=== PATIENT | female | born 1990 | race Caucasian/White ===

== ENCOUNTER 2024-09-20 09:45 | Emergency (ER) | payer MEDICAID ==
[~2024-09-20] VITALS: Ht 172.7 cm; Wt 70.0 kg
[2024-09-20 09:49] VITALS: O2SAT 99
[2024-09-20 11:27] LABS: CLARITY URINE TURBID (CLEAR); COLOR URINE YELLOW (YELLOW); GLUCOSE URINE NEGATIVE (NEGATIVE); KETONES URINE NEGATIVE (NEGATIVE); LEUKOCYTE ESTERASE URINE NEGATIVE (NEGATIVE); NITRITE URINE NEGATIVE (NEGATIVE); OCCULT BLOOD URINE NEGATIVE (NEGATIVE); PROTEIN URINE NEGATIVE (NEGATIVE); SPECIFIC GRAVITY URINE 1.013 (1.005-1.030)
[2024-09-20 11:39] LABS: AMORPHOUS SEDIMENT URINE 4+ /lpf; BACTERIA URINE 2+; RBC URINE 0-2 /hpf (0-2); SQUAMOUS EPITHELIAL CELL URINE FEW /lpf (RARE/1+); WBC URINE 0-2 /hpf (0-2); YEAST URINE NONE SEEN
[2024-09-20] MEDS: FAMOTIDINE 20MG/2ML VIAL IV STA (12:32)
[2024-09-20] MEDS: MORPHINE SULFATE 4 MG/ML INJ (FOR IV/IM USE) IV STA (12:33)
[2024-09-20] MEDS: ONDANSETRON HCL 4MG/2ML INJ IV STA ×2 (12:33→15:55)
[2024-09-20] MEDS: SODIUM CHLORIDE 0.9% 1,000 ML IV ONE (12:33)
[2024-09-20 12:57] LABS: BASOPHILS % 0.4 % (0.0-2.0); EOSINOPHILS % 0.2 % (0.0-5.0); HEMATOCRIT. 42.5 % (36.0-48.0); HEMOGLOBIN. 14.4 g/dL (12.0-16.0); LYMPHOCYTES % 32.9 % (20.0-50.0); MEAN CORPUSCULAR HEMOGLOBIN 29.1 pg (28.0-32.0); MEAN CORPUSCULAR VOLUME 85.8 fL (81.0-99.0); MEAN PLATELET VOLUME 8.9 fl (7.4-10.4); MONOCYTES % 8.5 % (2.0-8.0); PLATELET 314 x1000/uL (130-400); RED BLOOD CELL COUNT 4.95 mill/uL (4.2-5.4); RED CELL DISTRIBUTION WIDTH 13.9 % (11.6-14.6); WHITE BLOOD COUNT 7.7 x1000/uL (4.5-11.0)
[2024-09-20 13:02] LABS: CARBON DIOXIDE 31 mEq/L (21-32); CHLORIDE 103 mEq/L (98-107); POTASSIUM 3.4 mEq/L (3.5-5.1); SODIUM 138 mEq/L (136-145)
[2024-09-20 13:03] LABS: CALCIUM 9.1 mg/dL (8.7-10.4)
[2024-09-20 13:07] LABS: CREATININE 0.8 mg/dL (0.6-1.0)
[2024-09-20 13:08] LABS: GLUCOSE 101 mg/dL (70-105); UREA NITROGEN BLOOD 9 mg/dL (9-23)
[2024-09-20] MEDS: KETOROLAC 30MG/ML VIAL IV ONE (13:08)
[2024-09-20 13:09] LABS: ALANINE AMINOTRANSFERASE 10 IU/L (10-49); ALBUMIN 4.8 g/dL (3.2-4.8); ASPARTATE AMINOTRANSFERASE 15 IU/L (<34)
[2024-09-20 13:10] LABS: BILIRUBIN DIRECT 0.2 mg/dL (<=3.0); BILIRUBIN TOTAL 0.6 mg/dL (0.1-1.0); PROTEIN TOTAL 7.3 g/dL (6.0-8.3)
[2024-09-20 13:22] LABS: INR 1.1; PROTHROMBIN TIME 11.3 sec (9.6-11.0)
[2024-09-20 13:37] LABS: HCG SCREEN NEGATIVE
[2024-09-20] MEDS: BUPRENORPHINE 8MG SL TABLET SL ONE (14:15)
[2024-09-20] MEDS: GABAPENTIN 400MG CAPSULE PO ONE (14:15)
[2024-09-20 15:12] VITALS: TEMP 37.2
[2024-09-20] MEDS: HALOPERIDOL LACTATE 5MG/ML VIAL IM STA (15:56)
[2024-09-20 16:58] VITALS: BP 128/77; PULSE 64; RESP 14; O2SAT 96
[2024-09-20] MEDS ORDERED: DIPHENHYDRAMINE 25MG CAPSULE PO ONE (17:00)
[2024-09-20] MEDS ORDERED: KETOROLAC 30MG/ML VIAL IV PRN (19:45)
[2024-09-20] MEDS ORDERED: ONDANSETRON HCL 4MG/2ML INJ IV PRN (19:45)
== END 2024-09-20 17:27 | disposition admitted as inpatient to this hospital (09) ==
LOC: ER 09:45 → 6EST 15:21 → UNDOADMIN 15:21 → EDBEDREQTM 15:27 → EDBEDREQ 15:27 → ENRESERV 16:06 → UNDODISIN 20:50
DX: K52.9 Noninfective gastroenteritis and colitis, unspecified (principal)
CPT/HCPCS: 80076; 80048; 81003; 81025; 84703; 83690; 85025; 85610; 36415; 74018; 74176; 96361; 96372; 96374; 96375; 96376; 99285; J1308; J1630; J1885; J2405; J2270; Z7610 ×4; J7030; A4606